=== PATIENT | male | born 1965 | race Caucasian/White ===

== ENCOUNTER 2019-07-09 05:34 | Day surgery (SDC) | payer OTHER ==
[~2019-07-09] VITALS: Ht 167.6 cm; Wt 76.0 kg
[2019-07-09 05:59] VITALS: BP 130/84
== END 2019-07-09 09:20 | disposition home or self-care (01) ==
LOC: OUT 05:34
PROVIDERS: ATTEND Orthopaedic Surgery
DX: S83.231A Complex tear of medial meniscus, current injury, right knee, initial encounter (principal); S83.281A Other tear of lateral meniscus, current injury, right knee, initial encounter; M94.261 Chondromalacia, right knee; X58.XXXA Exposure to other specified factors, initial encounter; Y93.89 Activity, other specified; Y92.89 Other specified places as the place of occurrence of the external cause; Y99.8 Other external cause status
CPT/HCPCS: 29880; 81003; J0690; J1100; J1885; J2250; J2405; J2704; J2795; J3010; J3490; J7120

== ENCOUNTER 2020-09-03 04:46 | Emergency (ER) | payer OTHER ==
[~2020-09-03] VITALS: Ht 165.1 cm; Wt 79.2 kg
[~2020-09-03 04:46] MED LIST: CINN500C2 PO; TAMS-11 PO; prosvent PO
--- NOTE | 2020-09-03 04:56 | NUR ---
Li trejo in [facility] - 09/03/20 at 0538 by HELENA patient screaming at the registration staff, security was called and escorted out.
--- NOTE | 2020-09-03 05:56 | NUR ---
very pleasant gentleman notes two episodes frankly bloody urine. No pain, burning, has hx BPH sees urlogy takes meloxicam, tejocote root
[2020-09-03 06:15] LABS: MICROSCOPIC INDICATED
[2020-09-03 06:38] VITALS: BP 128/91
--- NOTE | 2020-09-03 06:39 | NUR ---
RESTING QUIETLY, NAD AT THIS TIME.
== END 2020-09-03 04:59 | disposition home or self-care (01) ==
LOC: ED 04:53
DX: R31.0 Gross hematuria (principal)
CPT/HCPCS: 81001; 87086; 99283

== ENCOUNTER → 2020-09-20 | Outpatient (CLI) | payer OTHER ==
[~2020-09-20] MED LIST changes: +OMNIPAQUE 350 MG/ML, 150 ML BOTTLE ONE
== END | disposition home or self-care (01) ==
LOC: CFH 14:14
PROVIDERS: ATTEND Physician Assistant
DX: R31.0 Gross hematuria (principal)
CPT/HCPCS: 74178; Q9967